=== PATIENT | male | born 1990 | race African-American/Black ===

== ENCOUNTER 2019-08-12 12:55 | Emergency (ER) | payer OTHER ==
[2019-08-12 13:52] VITALS: BP 134/84
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
== END 2019-08-12 14:30 | disposition home or self-care (01) ==
LOC: UCCORT 12:55
DX: M25.512 Pain in left shoulder (principal); S16.1XXA Strain of muscle, fascia and tendon at neck level, initial encounter; Z87.891 Personal history of nicotine dependence; V49.9XXA Car occupant (driver) (passenger) injured in unspecified traffic accident, initial encounter; Y92.9 Unspecified place or not applicable
CPT/HCPCS: 99202; G0463

== ENCOUNTER 2019-11-27 14:06 | Emergency (ER) | payer SELFPAY ==
--- NOTE | 2019-11-27 15:35 | UC ---
[facility] HPI HPI Summary: Telehealth visit done by Chirag Rachel MD 11/27/2019 at 15:20. 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 His appetite is normal, eating and drinking well, normal appetite. He has been resting at home. Took advis x 1 with improvement, but he has not repeated the dose because he dislikes taking pills. He has a mild non-productive cough without shortness of breath or chest pain. He has had no recent travel, got a hair cut last week, no contact with anyone with COVID 19. He reports mild allergies typically active at this time of year but he has not taken any antihistamines. He cannot feel nodes in his neck. No hx of asthma. [facility] PMH Previously Healthy: Yes - Mild environmental allergies. Endocrine/Hematology History: Denies: Hx Diabetes, Hx Thyroid Disease Cardiovascular History: Denies: Hx Hypertension Respiratory History: Denies: Hx Asthma, Hx Chronic Obstructive Pulmonary Disease (COPD) GI History: Denies: Hx Ulcer EENT History: Reports: Hx Seasonal Allergies - Surgical History Surgery Procedure, Year, and Place: appy Infectious Disease History: No Infectious Disease History: Denies: History Other Infectious Disease, Traveled Outside the [place] in Last 30 Days - Family History Known Family History: Positive: Cardiac Disease, Respiratory Disease - mother - Social History Occupation: Employed Full-time Lives: Alone Alcohol Use: Occasionally Substance Use Type: Reports: Marijuana Substance Use Comment - Amount & Last Used: occasional use Smoking Status (MU): Former Smoker Have You Smoked in the Last Year: No [facility] ROS All Other Systems Reviewed And Are Negative: Yes Constitutional: Negative Negative: Fever, Chills, Fatigue Eyes: Negative Positive: Sore Throat, Nasal Discharge Cardiovascular: Negative Positive: Cough. Negative: Shortness Of Breath Gastrointestinal: Negative Genitourinary: Negative Negative: Myalgia Skin: Negative Neurological/Mental Status: Negative Psychological: Normal [facility] PE Telehealth Physical Exam: Audio visit only. Alert, answered questions appropriately, able to answer questions in full sentences without apparent dyspnea or distress. [facility] Course/Dx Assessment/Plan: Discussed that this is likely viral illness, with no apparent risk of COVID. Advised off work today and tomorrow, with close attention to his symptoms. He is advised to follow up if he develops fever or shortness of breath. Anticipate resolution of symptoms within 2 to 3 days. Provider Diagnoses: Viral URI with cough UC Telehealth Disposition Provider Recommendation for Treatment: Home/Supportive Care Telehealth Visit: Patient Consented Verbally to Telehealth Visit Telehealth Patient Statement: The patient should understand that they are communicating with their provider via a secure communication platform and that all the same privacy and confidentiality rules apply. They will also be responsible for copayments or coinsurances that apply to any Telehealth visit. Patient Identifiers: 2 Patient Identifiers Verified for Telehealth Visit Telehealth Visit Start Time: 15:20 Telehealth Visit End Time: 15:35 Telehealth Provider Attestation: The above services were appropriate to provide in a Telehealth setting. - Attestation Statements Document Initiated by Evan: No
== END 2019-11-27 16:00 | disposition home or self-care (01) ==
LOC: UCCORT 14:06
DX: J06.9 Acute upper respiratory infection, unspecified (principal); R05 Cough; Z87.891 Personal history of nicotine dependence
CPT/HCPCS: 99211; G0463